=== PATIENT | female | born 2005 | race Caucasian/White ===

== ENCOUNTER 2023-05-14 08:53 | Inpatient (IN) | payer SELFPAY ==
[~2023-05-14] VITALS: Ht 160 cm; Wt 76.7 kg
[2023-05-14] VITALS (19 sets, daily range): BP systolic 101–138; BP diastolic 60–89
[2023-05-14] MEDS ORDERED: D5 LR IV SOLUTION 1,000 ML IV SCH (09:30)
[2023-05-14 09:57] LABS: BASOPHILS % (AUTO) 0 % (0-10); EOSINOPHILS % (AUTO) 1 % (0-10); HEMATOCRIT 37 % (35-52); HEMOGLOBIN 12.9 g/dL (11.5-16.0); LYMPHOCYTES # (AUTO) 1.8 10^3/uL (1.0-4.0); LYMPHOCYTES % (AUTO) 22 % (12-44); MEAN CORPUSCULAR HEMOGLOBIN 31 pg (25-34); MEAN CORPUSCULAR HGB CONC 35 g/dL (32-36); MEAN CORPUSCULAR VOLUME 88 fL (80-99); MEAN PLATELET VOLUME 11.1 fL (9.0-12.2); MONOCYTES # (AUTO) 0.7 10^3/uL (0.0-1.0); MONOCYTES % (AUTO) 8 % (0-12); NEUTROPHILS # (AUTO) 5.9 10^3/uL (1.8-7.8); NEUTROPHILS % (AUTO) 69 % (42-75); PLATELET COUNT 175 10^3/uL (130-400); WHITE BLOOD COUNT 8.5 10^3/uL (4.3-11.0)
[2023-05-14] MEDS ORDERED: fentaNYL 2 mcg/ml BUPIVA 0.125 100 ML ONE (10:17)
[2023-05-14] MEDS ORDERED: BUPIVACAINE 0.25% 10 ML (SENSORCAINE) VIAL ONE (10:32)
[2023-05-14] MEDS ORDERED: fentaNYL INJ 100 MCG/2 ML AMP ONE (10:32)
[2023-05-14] MEDS: fentaNYL 2 mcg/ml BUPIVA 0.125 100 ML EPI SCH (10:50)
[2023-05-14] MEDS ORDERED: diphenhydrAMINE 50 MG/ML INJ (BENADRYL) IV PRN (11:00)
[2023-05-14] MEDS ORDERED: LACTATED RINGERS 1,000 ML IV SCH (11:00)
[2023-05-14] MEDS ORDERED: NALOXONE 0.4 MG/ML 1 ML (NARCAN) VIAL IV PRN ×2 (11:00→16:00)
[2023-05-14] MEDS ORDERED: ONDANSETRON 4 MG/2 ML (SDV) Z0FRAN IV PRN (11:00)
[2023-05-14] MEDS ORDERED: OXYTOCIN PRE-MIX DRIP 500 ML IV ONE ×2 (11:15→15:45)
[2023-05-14] MEDS ORDERED: PREN1TAB19 PO (11:46)
[2023-05-14] MEDS ORDERED: LIDOCAINE/EPI 2% 1:200,00 (XYLOCAINE) 20 ML VIAL ONE (14:15)
[2023-05-14] MEDS ORDERED: LIDOCAINE/EPI 2% 1:200,00 (XYLOCAINE) 20 ML VIAL INJ ONE (14:19)
--- NOTE | 2023-05-14 15:46 | History & Physical-OB ---
OB - Chief Complaint & HPI Date/Time Date of Admission: Date of Admission: May 14, 2023 at 09:24 Date seen by a Provider: May 14, 2023 Time Seen by a Provider: 11:30 Chief Complaint/History OB-Reason for Admission/Chief: Onset of Labor Hx : 1 Hx Para: 0 Expected Date of Delivery: May 23, 2023 Gestational Age in Weeks: 38 Gestational Age in Days: 5 Other reason for admission: Patient presented in active labor, SROM and 5 cm dilatated Admission Nurse Assessment Rev: Yes History of Labs GBS neg Allergies and Home Medications Allergies Coded Allergies: No Known Drug Allergies (Unverified , 05/14/23) Patient Home Medication List Home Medication List Reviewed: Yes Vit/Iron Fumarate/FA ( Vitamins Tablet) 28 Mg Iron-800 Mcg Tablet, 1 EACH PO DAILY, (Reported) Entered as Reported by: WILLIAMS MCCORMACK on 05/14/23 9375 Last Action: New Order OB - History Hx of Present Care: Yes (w/ Dr. Laguna at [facility] [place] Ultrasounds: Normal mid trimester US Obstetrical Complications: None Medical Complications: None Patient Past Medical History nc Immunizations Influenza Vaccine Up-to-Date: No; Not Current Hepatitis A: No Hepatitis B: No OB - Admission Exam Physical Exam Vitals: Vital Signs 05/14/23 05/14/23 05/14/23 05/14/23 10:43 11:02 11:09 11:45 Temp 36.6 Pulse 67 Resp 18 B/P (MAP) 119/83 (95) Pulse Ox 100 O2 Delivery Room Air HEENT: NCAT Heart: Rhythm Normal Lungs: Clear Abdomen: Gravid Extremities: Normal Reflexes: Normal Cervical Dilatation: 5cm Effacement: 75% Station: -1 Membranes: Ruptured Amniotic Fluid: Clear Heart Rate: 130's Accelerations: Accelerations Present Decelerations: No Decelerations Short Term Variability: Present Snf Variability: Average (6-25) Contractions on Admission: < 5 Minutes Apart Intensity: Firm Labs Laboratory Tests Test 05/14/23 09:45 Range/Units White Blood Count 8.5 4.3-11.0 10^3/uL Red Blood Count 4.22 3.80-5.11 10^6/uL Hemoglobin 12.9 11.5-16.0 g/dL Hematocrit 37 35-52 % Mean Corpuscular Volume 88 80-99 fL Mean Corpuscular Hemoglobin 31 25-34 pg Mean Corpuscular Hemoglobin Concent 35 32-36 g/dL Red Cell Distribution Width 12.8 10.0-14.5 % Platelet Count 175 130-400 10^3/uL Mean Platelet Volume 11.1 9.0-12.2 fL Immature Granulocyte % (Auto) 1 % Neutrophils (%) (Auto) 69 42-75 % Lymphocytes (%) (Auto) 22 12-44 % Monocytes (%) (Auto) 8 0-12 % Eosinophils (%) (Auto) 1 0-10 % Basophils (%) (Auto) 0 0-10 % Neutrophils # (Auto) 5.9 1.8-7.8 10^3/uL Lymphocytes # (Auto) 1.8 1.0-4.0 10^3/uL Monocytes # (Auto) 0.7 0.0-1.0 10^3/uL Eosinophils # (Auto) 0.0 0.0-0.3 10^3/uL Basophils # (Auto) 0.0 0.0-0.1 10^3/uL Immature Granulocyte # (Auto) 0.0 0.0-0.1 10^3/uL OB - Assessment/Plan/Diagnosis Assessment Assessment: active labor Admission Dx 17 yo @ 38 weeks Active labor SROM GBS neg Admission Status: Inpatient Order (span 2 midnights) Reason for Inpatient Admission: active labor at 38 weeks Plan Plan: Expectant Management AGUSTIN RAMSAY DO May 14, 2023 15:46
--- NOTE | 2023-05-14 15:50 | OB Labor & Delivery Record ---
L&D History Date of Service Date of Service: May 14, 2023 History Expected Date of Delivery: May 23, 2023 Gestational Age in Weeks: 38 Hx : 1 Hx Para: 0 Complications Events: Routine care Operative Indications (Cesarea: N/A-Vaginal Delivery Intrapartal Events: None L&D Stage1 Stage One Onset of Labor - Date: May 14, 2023 Monitors and Tracing Monitor Mode: External Heart Rate: 130 Station: -1 Wool Sorter Variability: Average (6-10) Short Term Variability: Present Presentation: Vertex Vital Signs VS - Last 72 Hours, by Label 05/14/23 05/14/23 05/14/23 05/14/23 09:10 09:10 10:25 10:32 Temp 36.6 36.6 Pulse 69 75 74 81 Resp 20 20 20 20 B/P (MAP) 129/84 (99) 122/79 (93) 138/68 (91) Pulse Ox 97 97 100 100 O2 Delivery Room Air Room Air Room Air 05/14/23 05/14/23 05/14/23 05/14/23 10:38 10:43 10:46 10:50 Pulse 74 70 88 71 Resp 20 20 20 B/P (MAP) 119/89 (99) 116/80 (92) 121/78 (92) 117/74 (88) Pulse Ox 98 100 99 99 O2 Delivery Room Air Room Air 05/14/23 05/14/23 05/14/23 05/14/23 10:53 10:55 11:00 11:02 Temp 36.6 Pulse 72 72 69 66 Resp 20 18 18 B/P (MAP) 110/74 (86) 110/73 (85) 110/74 (86) 108/71 (83) Pulse Ox 99 100 05/14/23 05/14/23 05/14/23 05/14/23 11:04 11:09 11:12 11:30 Pulse 71 78 70 67 Resp 18 18 18 18 B/P (MAP) 108/73 (85) 101/66 (78) 114/78 (90) 111/67 (82) Pulse Ox 100 05/14/23 11:45 Pulse 67 Resp 18 B/P (MAP) 119/83 (95) Rupture of Membranes Spontaneous Ruture of Membrane: Yes Amniotic Membrane Rupture Time: 0530 Amniotic Membrane Fluid Desc.: Clear Vaginal Bleeding Description: Normal Show Induction/Anesthesia Epidural Cath Placement - Time: 1044 Progress/Notes Patient admitted in active labor, had no augmentation. Received and epidural and progressed to complete and + 2 station. L&D Stage2 Stage Two Stage II Date: May 14, 2023 Monitors and Tracing Monitor Mode: External Heart Rate: 130 Position: Right Occiput Anterior Presentation: Vertex Cord Descript/Complications Cord Vessel Description: 3 Vessels Delivery Type Infant Delivery Method: Spontaneous Vaginal Anterior Shoulder: Left Episiotomy/Perineal Laceration Laceraction(s)/Extensions: Yes Episiotomy Description: Right Mediolateral Degree (describe repair) RML repaired using 3-0 vicryl and 2-0 vicryl in usual fashion Condition of Infant Delivery Notes Live male infant due to respiratory distress taken to nursery, weight and APGARs pending Condition of Condition of Infant: Living Exam: No Observed Abnormalities Resuscitation Resuscitation: Bag and Mask L&D Stage3 Stage Three Stage III Date: May 14, 2023 Pictocin Pitocin Administration Comment: 30 mu wide open after delivery of placenta Placenta Delivery Placenta Delivery: Spontaneous Delivery Summary Summary Estimated blood loss (mL): 400 Attending at delivery: Agustin Ramsay DO Condition of Delivery Examined: Cervix Examined, Uterus Explored Post Hemorrhage: No Condition of Mother stable Condition of Infant (s) stable AGUSTIN RAMSAY DO May 14, 2023 15:50
--- NOTE | 2023-05-14 15:51 | Discharge Inst-Women's Service ---
Discharge Inst-Women's Serv Depart Medication/Instructions New, Converted or Re-Newed RX: Transmitted to Pharmacy Final Diagnosis PPD 1 NVD Problems Reviewed?: Yes Consults/Follow Up Additional Follow Up: Yes Orders/Referrals Dr. Ramsay/Maria Esther/Jase in 6 weeks Activity Activity: Activity as Tolerated Driving Instructions: No Driving for 1 Week NO SMOKING: NO SMOKING Nothing Inside Vagina: No Douching, No [place], No Tampons Diet Discharge Diet: No Restrictions Symptoms to Report to : Bleeding Excessive, Pain Increased, Fever Over 101 Degrees F, Vaginal Bleeding Increase, Questions/Concerns For Any Problems or Questions: Contact Your Physician AGUSTIN RAMSAY DO May 14, 2023 15:51
[2023-05-14] MEDS ORDERED: DIBU30OI TOP (15:52)
[2023-05-14] MEDS ORDERED: DOCU100C37 PO (15:52)
[2023-05-14] MEDS ORDERED: BENZ78AE5 TP (15:52)
[2023-05-14] MEDS ORDERED: ACET-93 PO (15:52)
[2023-05-14] MEDS ORDERED: IBUP-844 PO (15:52)
[2023-05-14] MEDS ORDERED: DIBUCAINE 1% OINTMENT 28 GM TUBE TOP PRN (16:00)
[2023-05-14] MEDS ORDERED: MEASLES,MUMPS,RUBELLA 1 EA INJ SQ ONE (16:00)
[2023-05-14] MEDS ORDERED: OXYTOCIN PRE-MIX DRIP 500 ML IV SCH (16:00)
[2023-05-14] MEDS ORDERED: TETANUS,DIPTH,PERTUSS P/F (BOOSTRIX) 0.5 ML VIAL IM ONE (16:00)
[2023-05-14] MEDS ORDERED: BENZOCAINE/MENTHOL (DERMOPLAST) 56 ML CAN TP PRN (16:00)
[2023-05-14] MEDS ORDERED: WITCH HAZEL(TUCKS) 40 EA JAR TOP PRN (16:00)
[2023-05-14] MEDS: ACETAMINOPHEN 500 MG TAB (TYLENOL) PO SCH ×2 (16:45→23:39)
[2023-05-14] MEDS: IBUPROFEN 600 MG (MOTRIN) TAB PO SCH ×2 (16:45→23:38)
[2023-05-14] MEDS ORDERED: DOCUSATE SODIUM 100 MG (COLACE) CAP PO SCH (21:00)
[2023-05-14] MEDS ORDERED: CATHETER FLUSH 10 ML SYR IV SCH (22:00)
[2023-05-15 01:15] VITALS: BP 113/56
[2023-05-15] MEDS: IBUPROFEN 600 MG (MOTRIN) TAB PO SCH (05:07)
[2023-05-15 05:08] VITALS: BP 116/66
[2023-05-15] MEDS: ACETAMINOPHEN 500 MG TAB (TYLENOL) PO SCH (05:08)
[2023-05-15 06:17] LABS: BASOPHILS % (AUTO) 0 % (0-10); EOSINOPHILS # (AUTO) 0.1 10^3/uL (0.0-0.3); EOSINOPHILS % (AUTO) 1 % (0-10); HEMATOCRIT 30 % (35-52); HEMOGLOBIN 9.9 g/dL (11.5-16.0); LYMPHOCYTES # (AUTO) 1.6 10^3/uL (1.0-4.0); LYMPHOCYTES % (AUTO) 16 % (12-44); MEAN CORPUSCULAR HGB CONC 34 g/dL (32-36); MEAN CORPUSCULAR VOLUME 91 fL (80-99); MEAN PLATELET VOLUME 11.1 fL (9.0-12.2); MONOCYTES # (AUTO) 0.9 10^3/uL (0.0-1.0); MONOCYTES % (AUTO) 8 % (0-12); NEUTROPHILS # (AUTO) 7.9 10^3/uL (1.8-7.8); NEUTROPHILS % (AUTO) 75 % (42-75); PLATELET COUNT 134 10^3/uL (130-400); WHITE BLOOD COUNT 10.6 10^3/uL (4.3-11.0)
[2023-05-15 06:26] LABS: MEAN CORPUSCULAR HEMOGLOBIN 30 pg (25-34)
[2023-05-15] MEDS ORDERED: PRENATAL VITAMIN 1 EA TAB PO SCH (07:00)
[2023-05-15] MEDS ORDERED: FERR325T18 PO (08:13)
--- NOTE | 2023-05-15 08:13 | Postpartum Progress Note ---
Note Note Day # 1 Subjective: Patient is without complaints. Ambulating, voiding. Tolerating a regular diet without nausea or vomiting. Normal lochia. Pain is well controlled with oral pain medications. Objective: Physical Exam: General - Alert and oriented, no apparent distress Abdomen - Soft, appropriately tender to palpation, non-distended, fundus firm at umbilicus Extremities - no edema, negative Rahel's bilaterally Assessment: PPD 1 NVD Acute blood loss anemia Plan: Routine care. Encourage breast feeding. Encourage ambulation. Ferrous sulfate supplementation. Plan for discharge today due to infant transfer to [facility] Vitals - Labs Vital Signs - I&O Vital Signs Date Time Temp Pulse Resp B/P (MAP) Pulse Ox O2 Delivery O2 Flow Rate FiO2 05/15/23 05:08 36.4 70 18 116/66 (83) 98 Room Air 05/15/23 01:15 36.7 67 18 113/56 (75) 98 Room Air 05/14/23 21:01 36.5 57 18 115/66 (82) 100 Room Air 05/14/23 17:00 101 18 113/63 (80) 05/14/23 16:30 82 111/60 (77) 05/14/23 14:30 36.9 Non Rebreather 12.00 05/14/23 14:04 Non Rebreather 12.00 05/14/23 11:45 36.7 67 18 119/83 (95) Room Air 05/14/23 11:30 67 18 111/67 (82) 05/14/23 11:12 70 18 114/78 (90) 05/14/23 11:09 78 18 101/66 (78) 100 05/14/23 11:04 71 18 108/73 (85) 05/14/23 11:02 36.6 66 18 108/71 (83) 05/14/23 11:00 69 18 110/74 (86) 100 05/14/23 10:55 72 110/73 (85) 05/14/23 10:53 72 20 110/74 (86) 99 05/14/23 10:50 71 20 117/74 (88) 99 05/14/23 10:46 88 121/78 (92) 99 05/14/23 10:43 70 20 116/80 (92) 100 Room Air 05/14/23 10:38 74 20 119/89 (99) 98 Room Air 05/14/23 10:32 81 20 138/68 (91) 100 Room Air 05/14/23 10:25 74 20 122/79 (93) 100 05/14/23 09:10 36.6 75 20 97 Room Air 05/14/23 09:10 36.6 69 20 129/84 (99) 97 Room Air I & O 05/15/23 07:00 Intake Total 2350 ml Balance 2350 ml Labs Laboratory Tests 05/14/23 09:45: White Blood Count 8.5, Red Blood Count 4.22, Hemoglobin 12.9, Hematocrit 37, Mean Corpuscular Volume 88, Mean Corpuscular Hemoglobin 31, Mean Corpuscular Hemoglobin Concent 35, Red Cell Distribution Width 12.8, Platelet Count 175, Mean Platelet Volume 11.1, Immature Granulocyte % (Auto) 1, Neutrophils (%) (Auto) 69, Lymphocytes (%) (Auto) 22, Monocytes (%) (Auto) 8, Eosinophils (%) (Auto) 1, Basophils (%) (Auto) 0, Neutrophils # (Auto) 5.9, Lymphocytes # (Auto) 1.8, Monocytes # (Auto) 0.7, Eosinophils # (Auto) 0.0, Basophils # (Auto) 0.0, Immature Granulocyte # (Auto) 0.0, Syphilis Serology Non-Reactive 05/15/23 05:36: White Blood Count 10.6, Red Blood Count 3.25L, Hemoglobin 9.9#L, Hematocrit 30L, Mean Corpuscular Volume 91, Mean Corpuscular Hemoglobin 30, Mean Corpuscular Hemoglobin Concent 34, Red Cell Distribution Width 13.0, Platelet Count 134, Mean Platelet Volume 11.1, Immature Granulocyte % (Auto) 1, Neutrophils (%) (Auto) 75, Lymphocytes (%) (Auto) 16, Monocytes (%) (Auto) 8, Eosinophils (%) (Auto) 1, Basophils (%) (Auto) 0, Neutrophils # (Auto) 7.9H, Lymphocytes # (Auto) 1.6, Monocytes # (Auto) 0.9, Eosinophils # (Auto) 0.1, Basophils # (Auto) 0.0, Immature Granulocyte # (Auto) 0.1 AGUSTIN RAMSAY DO May 15, 2023 08:13
--- NOTE | 2023-05-15 08:30 | Anesthesia-Regional Post-Op ---
Regional Patient Condition Mental Status: Alert, Oriented x3 Circulation: Same as Pre-Op Headache: Absent Sensation: Full Recovery Motor Block: Absent Post Op Complications Complications None Follow Up Care/Instructions Patient Instructions None needed. Anesthesia/Patient Condition Patient is doing well, no complaints, stable vital signs, no apparent adverse anesthesia problems. No complications reported per nursing. [place] [facility] [place] JOSE DAVIES CRNA May 15, 2023 08:30
[2023-05-15] MEDS ORDERED: FERROUS SULF 325 MG (IRON) TAB PO SCH (09:00)
[2023-05-15 09:54] VITALS: BP 116/71
== END 2023-05-15 10:50 | disposition home or self-care (01) | DRG 806 ==
LOC: WSo 08:53 → LDRP 08:53 → WSo 09:23 → LDRP 09:24
PROVIDERS: ADMIT Obstetrics & Gynecology; ATTEND Obstetrics & Gynecology
PROC: 10E0XZZ Delivery of Products of Conception, External Approach (ICD-10-PCS; principal; 2023-05-14)
PROC: 0W8NXZZ Division of Female Perineum, External Approach (ICD-10-PCS; 2023-05-14)
DX: O90.81 Anemia of the puerperium (principal); D62 Acute posthemorrhagic anemia; Z37.0 Single live birth; Z3A.38 38 weeks gestation of pregnancy
CPT/HCPCS: 36415; 85025; 86780; 86850; 86900; 86901